=== PATIENT | male | born 2000 | race Caucasian/White ===

== ENCOUNTER 2022-08-29 06:08 | Day surgery (SDC) | payer BC, OTHER ==
[2022-08-26 12:53] VITALS: BMI 18.3
[2022-08-29] MEDS ORDERED: LIDOCAINE HCL 2% 100 MG/5 ML DISP.SYRIN ONE (07:13)
[2022-08-29] MEDS ORDERED: PROPOFOL 40 ML ONE (07:14)
[2022-08-29] MEDS ORDERED: MIDAZOLAM HCL 2 MG/2 ML SINGLE DOSE VIAL ONE (07:14)
[2022-08-29] MEDS ORDERED: ETOMIDATE 20 MG/10 ML AMPUL IVPUSH ONE (07:38)
[2022-08-29] MEDS ORDERED: SCOPOLAMINE HYDROBROMIDE 1 PATCH PATCH.TD72 ONE (07:45)
[2022-08-29] MEDS ORDERED: LIDOCAINE 1% P/F 10 MG/ML VIAL ONE (07:48)
[2022-08-29] MEDS ORDERED: LIDOCAINE HCL 1%, 10 MG/ML (20ML VIAL) ONE (07:49)
[2022-08-29] MEDS ORDERED: BUPIVACAINE HCL/PF 0.25% (2.5MG/ML) 10 ML VIAL ONE (07:50)
[2022-08-29] MEDS ORDERED: ceFAZolin SODIUM 1 GM VIAL ONE ×3 (08:19→08:20)
[2022-08-29] MEDS ORDERED: DEXAMETHASONE SOD PHOSPHATE 4 MG/1 ML VIAL ONE (08:22)
[2022-08-29] MEDS ORDERED: BUPIVACAINE HCL 100 ML ONE (08:39)
[2022-08-29] MEDS ORDERED: ONDANSETRON 4 MG/2 ML VIAL ONE (08:46)
[2022-08-29] MEDS ORDERED: KETOROLAC TROMETHAMINE 30 MG/1 ML VIAL ONE (08:46)
[2022-08-29] MEDS ORDERED: PROMETHAZINE HCL 25 MG/1 ML VIAL IVPUSH PRN (09:09)
[2022-08-29] MEDS ORDERED: oxyCODONE HCL 5 MG TABLET PO PRN ×2 (09:09)
[2022-08-29] MEDS ORDERED: ONDANSETRON 4 MG/2 ML VIAL IVPUSH PRN (09:09)
[2022-08-29] MEDS ORDERED: LACTATED RINGERS SOLUTION 1,000 ML IV SCH (09:15)
[2022-08-29] MEDS ORDERED: ACETAMINOPHEN 1000 MG/100 ML BAG IVPB ONE (09:30)
[2022-08-29] MEDS ORDERED: ACETAMINOPHEN INJECTION 100 ML IVPB ONE (09:32)
[2022-08-29 10:24] VITALS: RESP 18; TEMP 97.7
[2022-08-29 10:58] VITALS: BP 116/65; PULSE 61
== END 2022-08-29 11:10 | disposition home or self-care (01) ==
LOC: FASU 06:08
PROVIDERS: ATTEND Orthopaedic Surgery
PROC: 0PSN04Z Reposition Left Carpal with Internal Fixation Device, Open Approach (ICD-10-PCS; principal; 2022-08-29 08:29)
DX: S62.002A Unspecified fracture of navicular [scaphoid] bone of left wrist, initial encounter for closed fracture (principal); X58.XXXA Exposure to other specified factors, initial encounter; Y93.9 Activity, unspecified; Y92.9 Unspecified place or not applicable
CPT/HCPCS: 25628; C1713; 94760